=== PATIENT | male | born 1970 | race African-American/Black ===

== ENCOUNTER 2019-01-29 07:20 | Day surgery (SDC) | payer OTHER ==
[2019-01-29] VITALS (7 sets, daily range): BP systolic 101–143; BP diastolic 65–80; PULSE 66–85; RESP 11–16; Ht 180.3 cm; Wt 99.1 kg
[~2019-01-29] VITALS: Ht 180.3 cm; Wt 99.1 kg
[~2019-01-29 07:20] MED LIST: ASPI-817 PO; CYCLOPENTOLATE/PHENYLEPH 2 ML OPH RIGHT EYE SCH; DICLOFENAC 0.1% 2.5 ML OPH RIGHT EYE SCH; GLIP5TAB13 PO; HYDR25TA6 PO; LISI40TA3 PO; MAGN400T27 PO; METF-849 PO; MOXIFLOXACIN 0.5% 3 ML OPH RIGHT EYE SCH; SOD CHLORIDE 0.9% 1,000 ML IV SCH; TROPICAMIDE 1% 15 ML OPH RIGHT EYE SCH
[2019-01-29] MEDS ORDERED: CARBACHOL 0.01% 1.5 ML OPH INJ ONE ×2 (10:40→12:22)
[2019-01-29] MEDS ORDERED: CEFAZOLIN 1 GM INJ ONE (10:40)
[2019-01-29] MEDS ORDERED: NA HYALURONATE/CHONDROITIN 0.5 ML SYG ONE (10:41)
[2019-01-29] MEDS ORDERED: DEXAMETHASONE 4 MG/ML 1 ML INJ ONE (10:41)
[2019-01-29] MEDS ORDERED: LIDOCAINE 2% (SDV) 5 ML INJ ONE (11:09)
[2019-01-29] MEDS ORDERED: PROPOFOL 20 ML ONE (11:09)
[2019-01-29] MEDS ORDERED: MIDAZOLAM 1 MG/ML 2 ML INJ ONE (11:10)
[2019-01-29] MEDS ORDERED: FENTAnyl 50 MCG/ML VIAL ONE (11:27)
[2019-01-29] MEDS ORDERED: ALBUTEROL 0.083% (NEB) 2.5 MG/3 ML AMP HHN PRN (11:30)
[2019-01-29] MEDS ORDERED: ONDANSETRON 4 MG INJ IV PRN (11:30)
[2019-01-29] MEDS ORDERED: FENTAnyl 50 MCG/ML VIAL IV PRN (11:30)
[2019-01-29] MEDS ORDERED: LABETALOL HCL 20MG INJ IV PRN (11:30)
[2019-01-29] MEDS ORDERED: ACETAMINOPHEN 500 MG TAB PO PRN (11:30)
[2019-01-29] MEDS ORDERED: OXYCODONE/ACETAMINOPHEN (5/325) TAB PO PRN (11:30)
[2019-01-29] MEDS ORDERED: ACETAMINOPHEN 325 MG TAB PO PRN (11:30)
[2019-01-29] MEDS ORDERED: hydrALAzine 20 MG INJ IV PRN (11:30)
[2019-01-29] MEDS ORDERED: DIPHENHYDRAMINE 50 MG INJ IV PRN (11:30)
== END 2019-01-29 13:20 | disposition home or self-care (01) ==
LOC: SDS 07:20
PROVIDERS: ATTEND Ophthalmology
DX: H25.031 Anterior subcapsular polar age-related cataract, right eye (principal); E11.9 Type 2 diabetes mellitus without complications; I10 Essential (primary) hypertension; Z79.82 Long term (current) use of aspirin; Z79.84 Long term (current) use of oral hypoglycemic drugs
CPT/HCPCS: 66984; 82962; J0690; J1100; J2250; J3010; V2632; Z7512; Z7610